=== PATIENT | male | born 1960 | race Caucasian/White ===

== ENCOUNTER 2021-02-01 07:59 | Outpatient (RCR) | payer OTHER, SELFPAY ==
--- NOTE | 2021-02-01 08:56 | PTOPEVAL ---
Thank you for referring Luisito Wilson to [facility].? The patient is scheduled to be seen for therapy? ____x/week for ___ weeks. Please review, sign, date and return this plan of care XIMENA. I agree with and certify that the following plan of care is medically necessary. Referring Physician Date Admitting Provider: Attending Provider: Edwin Sanchez MD Referring Provider: *PT Outpatient Evaluation Start: 02/01/21 07:57 Freq: Status: Active Protocol: Document 02/01/21 07:58 ACR (Rec: 02/01/21 08:55 ACR [id number]) Therapy Assessment Status Assessment Status Assessment Status Evaluation Evaluation Information Problem Diagnosis bilateral lower extremity weakness Subjective Information Patient states he went to the Query Text:As Reported By Patient/ MD for his normal check up and Family his doctor said that he had weak legs. He did not want have to any imaging and decided to come to PT. Patient states he has not had any falls. He states he has had numbness in the feet for about 10 years and he believes that is from his back, but is also a type 2 diabetic and he is having trouble controlling it. He states he has had back pain for 10 years because of a bulging discs. Stairs are slightly difficult because of the numbness in the feet. He states he walks 5 times a week and keeps up with his hobbies and nothing is hindering him from performing these at this time. Prior Level of Function Activity Level (Last 3 Months) Occupation retired Hand Dominance Right Activity of Daily Living Ability Independent Indoor/Home Mobility Independent Community Mobility Independent Stairs Ability Independent Functional Cognition (Planning, Shopping Independent , Taking Medications) Cooking Yes Cleaning Yes Laundry Yes Shopping Yes Driving Yes Pain Assessment Timing of Pain Assessment Timing of Pain Assessment Assessment Self Report Self Report Pain Level 0 Pain Score Pain Score
--- NOTE | 2021-02-22 07:52 | PCPTNOTE ---
Patient is a 60 year old male that participated in the therapy evaluation for BLE weakness. The patient demonstrated limited deficits and was given a handout to perform at home. The patient is to be discharged at this time. Thank you, Simin Rodriguez DPT
== END 2021-02-01 09:19 | disposition home or self-care (01) ==
LOC: CHSPT 07:59
PROVIDERS: PCP Internal Medicine; Visit Provider Internal Medicine
DX: R53.1 Weakness (principal); R26.9 Unspecified abnormalities of gait and mobility; M48.07 Spinal stenosis, lumbosacral region; M54.10 Radiculopathy, site unspecified
CPT/HCPCS: 97161

== ENCOUNTER 2021-05-14 01:22 | Day surgery (SDC) | payer OTHER, SELFPAY ==
[2021-05-02 16:01] VITALS: BMI 27.8
--- NOTE | 2021-05-14 07:48 | WPDANESEPPF ---
Anes - Initial Pre Proc Eval Procedure: Operation Date: 05/14/21 10:30 Proposed Procedures p Screening Colonoscopy - Ronald Pradhan MD Date/Time: 05/14/21 07:48 Surgeon: Ronald Pradhan MD Pre Op Diagnosis: family hx of colon ca, hx of colon polyps Patient Data Age: 60 Gender: M Height: 1.91 m Weight: 101 kg Allergies Allergy/AdvReac Type Severity Reaction Status Date / Time No Known Allergies Allergy Unverified 05/14/21 10:03 Home Medications Medication Instructions Recorded Confirmed Type aspirin [Adult Low Dose Aspirin] 81 mg PO HS 05/02/21 05/14/21 History lovastatin 40 mg PO HS 05/02/21 05/14/21 History metformin 1,000 mg PO HS 05/02/21 05/14/21 History multivitamin [Men's Multi-Vitamin] 1 tablet PO HS 05/02/21 05/14/21 History niacin [Niaspan Extended-Release] 1,000 mg PO HS 05/02/21 05/14/21 History Patient hx anesthesia problems: none Family hx anesthesia problems: none PMFSH Past Medical History Medical History Diabetes type 2, controlled Hyperlipidemia Family History Family History Mother Family history of elevated blood lipids Family history of malignant neoplasm of uterus Family history of dementia Sibling Family history of elevated blood lipids Father Family history of dementia Family history of type 2 diabetes mellitus Family history of congestive heart failure Other Carcinoma of colon Social History Social History Smoking status: Never smoker Alcohol intake: current Substance use: never Substance use type: does not use Living arrangements: with family Spiritual care concerns: No Anes - Eval Final PreProcedure Day of Procedure 05/14/21 07:48 Patient weight: overweight Heart: regular rate and rhythm Lungs: clear to auscultation and normal air movement Airway: Mallampati scale class II Neurological: alert and oriented Last oral intake: >/= 8 hours ASA classification: III Emergent: no Anesthetic plan: proceed Anesthesia type and monitoring: general GIVS and standard monitoring Informed Consent: The patient's anesthetic plan and its attendant risks and benefits were discussed with the patient/family/POA. Questions were solicited and answers provided to the satisfaction of the patient/family/POA.
--- NOTE | 2021-05-14 09:53 | P.CONGI_ITS ---
Assessment and Plan Assessment and plan (1) History of colon polyps: Code(s): Z86.010 - Personal history of colonic polyps Status: Acute Assessment and Plan: Patient has prior history of colon polyps as well as a family history of colon polyps and cancer. Plan is for surveillance colonoscopy in every 3-5 years. (2) Family history of malignant neoplasm of colon in first degree relative diagnosed when younger than 60 years of age: Code(s): Z80.0 - Family history of malignant neoplasm of digestive organs Status: Acute Assessment and Plan: Patient's brother has had colon cancer at a young age. His father also has had colon polyps and patient himself has had colon polyps. Plan to anticipate follow-up colonoscopy in 3 years. Further recommendations will be given after colonoscopy performed today. GI Consult Note Consult date/time: 05/14/21 09:53 HPI: Luisito Wilson is a 60 year old male presents for surveillance colo noscopy. Patient has a history of a previous colonoscopy in 2018 that revealed colon polyps. Family history is significant that his brother had colon cancer his father had colon polyps as well. Patient reports that his current weight appetite bowel movements are normal. He denies abdominal pain. He has had no bleeding. Review of Systems Review of Systems: All systems reviewed & are unremarkable except as noted in HPI and below PMFSH Past Medical History Medical History (Updated 05/14/21 @ 09:55 by Ronald Pradhan MD) Diabetes type 2, controlled Hyperlipidemia Family History Family History (Updated 02/15/15 @ 11:46 by DOCTOR UNKNOWN) Mother Family history of elevated blood lipids Family history of malignant neoplasm of uterus Family history of dementia Sibling Family history of elevated blood lipids Father Family history of dementia Family history of type 2 diabetes mellitus Family history of congestive heart failure Other Carcinoma of colon Social History Social History Smoking status: Never smoker Alcohol intake: current Substance use: never Substance use type: does not use Living arrangements: with family Spiritual care concerns: No Meds Home Medications and Allergies Home Medications Medication Instructions Recorded Confirmed Type aspirin [Adult Low Dose Aspirin] 81 mg PO HS 05/02/21 05/02/21 History lovastatin 40 mg PO HS 05/02/21 05/02/21 History metformin 1,000 mg PO HS 05/02/21 05/02/21 History multivitamin [Men's Multi-Vitamin] 1 tablet PO HS 05/02/21 05/02/21 History niacin [Niaspan Extended-Release] 1,000 mg PO HS 05/02/21 05/02/21 History Allergies Allergy/AdvReac Type Severity Reaction Status Date / Time No Known Allergies Allergy Unverified 05/02/21 16:01 Exam Narrative: Physical exam reveals patient to be alert. Vital signs stable. HEENT exam is unremarkable. Patient is anicteric. Lungs are clear to auscultation and percussion. Heart is without murmur or extra sounds. Abdominal exam bowel sounds are present soft nontender with no organomegaly. Digital external rectal exam is normal.
[2021-05-14 10:04] VITALS: BP 137/80; PULSE 90; RESP 16; TEMP 36.4; O2SAT 99
[2021-05-14] MEDS: LACTATED RINGERS 1,000 ML 150 ML IV CONT (10:15)
[2021-05-14 10:19] LABS: Glucose Point of Care 151 mg/dl (65-105)
--- NOTE | 2021-05-14 10:31 | WPDANESEPP ---
Anes - Eval Pre Procedure Procedure: Operation Date: 05/14/21 10:30 Proposed Procedures p Screening Colonoscopy - Ronald Pradhan MD Date/Time: 05/14/21 10:31 Pre Op Diagnosis: family hx of colon ca, hx of colon polyps Patient Data Age: 60 Gender: M Height: 1.91 m Weight: 97.7 kg Last Vital Signs Temp 36.4 C 05/14/21 10:04 Pulse 90 05/14/21 10:04 Resp 16 05/14/21 10:04 BP 137/80 05/14/21 10:04 Pulse Ox 99 05/14/21 10:04 Allergies Allergy/AdvReac Type Severity Reaction Status Date / Time No Known Allergies Allergy Unverified 05/14/21 10:03 Home Medications Medication Instructions Recorded Confirmed Type aspirin [Adult Low Dose Aspirin] 81 mg PO HS 05/02/21 05/14/21 History lovastatin 40 mg PO HS 05/02/21 05/14/21 History metformin 1,000 mg PO HS 05/02/21 05/14/21 History multivitamin [Men's Multi-Vitamin] 1 tablet PO HS 05/02/21 05/14/21 History niacin [Niaspan Extended-Release] 1,000 mg PO HS 05/02/21 05/14/21 History Laboratory Tests 05/14/21 10:14 POC Capillary Glucose 151 mg/dl H mg/dl (65-105) Patient hx anesthesia problems: none Family hx anesthesia problems: none PMFSH Past Medical History Medical History Diabetes type 2, controlled Hyperlipidemia Family History Family History Mother Family history of elevated blood lipids Family history of malignant neoplasm of uterus Family history of dementia Sibling Family history of elevated blood lipids Father Family history of dementia Family history of type 2 diabetes mellitus Family history of congestive heart failure Other Carcinoma of colon Social History Social History Smoking status: Never smoker Alcohol intake: current Substance use: never Substance use type: does not use Living arrangements: with family Spiritual care concerns: No Exam Day of Procedure 05/14/21 10:31 Patient weight: overweight Heart: regular rate and rhythm Lungs: normal air movement Airway: Mallampati scale class II Neurological: alert and oriented
[2021-05-14 10:58] VITALS: BP 93/66; PULSE 92; RESP 18; O2SAT 100
[2021-05-14 11:08] VITALS: BP 128/84; PULSE 81; RESP 24; O2SAT 99
[2021-05-14 11:18] VITALS: BP 126/83; PULSE 81; RESP 20; O2SAT 99
== END 2021-05-14 11:25 | disposition home or self-care (01) ==
PROVIDERS: PCP Internal Medicine; Visit Provider Internal Medicine Gastroenterology
PROC: 0DJD8ZZ Inspection of Lower Intestinal Tract, Via Natural or Artificial Opening Endoscopic (ICD-10-PCS; CPT 45378; principal; 2021-05-14 10:30)
DX: Z12.11 Encounter for screening for malignant neoplasm of colon (principal); Z83.71 Family history of colonic polyps; Z80.0 Family history of malignant neoplasm of digestive organs; K57.30 Diverticulosis of large intestine without perforation or abscess without bleeding; K64.8 Other hemorrhoids; E11.9 Type 2 diabetes mellitus without complications; E78.5 Hyperlipidemia, unspecified; Z79.82 Long term (current) use of aspirin; Z79.84 Long term (current) use of oral hypoglycemic drugs
CPT/HCPCS: 45378; 82948; J2704; J7120

== ENCOUNTER 2021-07-14 22:20 | Observation (INO) | payer OTHER, SELFPAY ==
--- NOTE | ~2021-07-14 | CT_ITS ---
EXAMINATION: CT abdomen pelvis w con EXAM DATE: 07/15/2021 00:32 INDICATION: Mid abdominal pain. TECHNIQUE: Spiral CT of the abdomen and pelvis was performed following intravenous injection of 100 m L Omnipaque 350. Axial, coronal and sagittal images of the abdomen and pelvis were reviewed. The do se-length product (DLP) for this examination was 889.75 mGy-cm. The exposure was tailored according to patient size (auto mA exposure control), and iterative reconstruction (ASIR) was used as additiona l dose reduction technique. There is no prior study for comparison. FINDINGS: The liver, spleen, adrenal glands and pancreas are unremarkable. Gallbladder is unremarkab le. No biliary obstruction. Portal and splenic veins are patent. Kidneys enhance symmetrically. T here is no hydronephrosis. There is 1.4 cm left renal cyst. Mild prostatomegaly. The bladder is unr emarkable. There is no retroperitoneal or pelvic lymphadenopathy. There is mild scattered arterios clerotic disease. The appendix is normal. The stomach and small bowel are unremarkable. There is expected amount of c olonic stool. No free intraperitoneal gas. The heart is normal in size. There are no pericardial or pleural effusions. The lung bases are unremarkable. There are no osteoblastic or osteolytic les ions identified. IMPRESSION: 1. No acute intra-abdominal findings. Reviewed, dictated and finalized at location A.
--- NOTE | 2021-07-14 23:22 | ECG_ITS ---
Measurements Intervals Luck Rate: 60 P: 33 ND: 148 QRS: -19 QRSD: 101 T: 48 QT: 416 QTc: 418 Interpretive Statements SINUS RHYTHM INCOMPLETE RIGHT BUNDLE BRANCH BLOCK BASELINE ARTIFACT- I, II, III, AVR, AVL, AVF BORDERLINE ECG Electronically Signed On 07-16-2021 7:50:31 CDT by Janak Mariscal D.O.
[2021-07-14 23:30] VITALS: BP 171/82; PULSE 85; RESP 20; TEMP 36.6; O2SAT 95
[2021-07-14 23:41] LABS: Basophils Absolute Auto 0.02 K/mm3 (0.00-0.10); Basophils Percent Auto 0.3 % (0.0-1.0); Eosinophils Percent Auto 1.3 % (1.0-6.0); Hematocrit 47.4 % (40.0-54.0); Hemoglobin 16.5 g/dL (14.0-18.0); Immature Granulocyte Absolute 0.03 K/mm3 (0.00-0.00); Immature Granulocyte Percent A 0.4 % (0.0-0.0); Lymphocytes Absolute Auto 0.76 K/mm3 (1.10-4.50); Lymphocytes Percent Auto 9.7 % (18.0-42.0); Mean Corpuscular HGB Conc 34.8 g/dL (32.0-36.0); Mean Corpuscular Hemoglobin 30.9 pg (27.0-31.0); Mean Corpuscular Volume 88.8 fL (78.0-102.0); Mean Platelet Volume 9.6 fl (8.7-11.0); Monocytes Absolute Auto 0.58 K/mm3 (0.10-0.90); Monocytes Percent Auto 7.4 % (2.0-11.0); Neutrophils Absolute Auto 6.3 K/mm3 (1.7-7.2); Neutrophils Percent Auto 80.9 % (50.0-70.0); Platelet Count Result 216 K/mm3 (150-420); Red Blood Count 5.34 M/mm3 (4.70-6.10); White Blood Count 7.8 K/mm3 (4.8-10.8)
[2021-07-14] MEDS: ONDANSETRON INJ 4 MG/2 ML VIAL IV PUSH (23:55)
[2021-07-14 23:58] LABS: Alanine Aminotransferase 35 U/L (16-63); Albumin Level 4.5 g/dL (3.4-5.0); Alkaline Phosphatase 80 U/L (46-116); Anion Gap 11 mmol/L (8-16); Aspartate Amino Transferase 20 U/L (15-37); Bilirubin,Total 0.6 mg/dL (0.00-1.00); Blood Urea Nitrogen 14 mg/dL (7-18); Calcium 9.2 mg/dL (8.5-10.1); Carbon Dioxide 28 mmol/L (21-32); Chloride 98 mmol/L (98-108); Estimated Glomerular Filt Rate > 60; Glucose 243 mg/dL (70-99); Lactic Acid Reflex 1.5 mmol/L (0.4-2.0); Lipase 115 U/L (73-393); Osmolality Calculated 292 mOsm/kg (285-295); Potassium 4.2 mmol/L (3.5-5.1); Sodium 137 mmol/L (136-145); Total Protein 7.9 g/dL (6.4-8.2); Troponin I 27.6 ng/L (0.00-60.4)
[2021-07-14] MEDS: MORPHINE SULFATE (*CRX) 4 MG/ML INJ IV PUSH (23:58)
[2021-07-15] MEDS: SODIUM CHLORIDE 0.9% IV 1,000 ML 999 ML IV CONT (00:01)
--- NOTE | 2021-07-15 01:21 | ED.ABDPAIN ---
HPI - Abdominal Pain General Chief Complaint: Abdominal Pain Stated Complaint: clamy,stomach cramps Source: patient and family Mode of arrival: ambulatory History of Present Illness HPI narrative: this is a 61-year-old gentleman that presents with abdominal pain with some nausea he rates his pain about 6 out 10 localizing to the left lower quadrant with no chest pain no shortness of breath no diarrhea constipation does have some nausea with no vomiting no dysuria no flank pain no fever chills. Patient does have a history of hyperlipidemia and diabetes. patient also felt diaphoretic, and received his COVID booster yesterday. MD elicited complaint: abdominal pain Pertinent past history: none Onset (ago): hour(s) Pain Consistency: constant Location: LLQ Severity: moderate Pain scale (0-10): 6 Quality: cramping and aching Radiation: none Related Data Home Medications Medication Instructions Recorded Confirmed aspirin [Adult Low Dose Aspirin] 81 mg PO HS 05/02/21 07/15/21 lovastatin 20 mg PO HS 05/02/21 07/15/21 metformin 1,000 mg PO HS 05/02/21 07/15/21 multivitamin [Men's Multi-Vitamin] 1 tablet PO HS 05/02/21 07/15/21 niacin [Niaspan Extended-Release] 1,000 mg PO HS 05/02/21 07/15/21 Allergies Allergy/AdvReac Type Severity Reaction Status Date / Time No Known Allergies Allergy Unverified 05/14/21 10:03 Review of Systems Review of Systems: All systems reviewed & are unremarkable except as noted in HPI and below PMFSH Past Medical History Medical History Diabetes type 2, controlled Hyperlipidemia Family History Family History Mother Family history of elevated blood lipids Family history of malignant neoplasm of uterus Family history of dementia Sibling Family history of elevated blood lipids Father Family history of dementia Family history of type 2 diabetes mellitus Family history of congestive heart failure Other Carcinoma of colon Social History Social History Smoking status: Never smoker Alcohol intake: current Substance use: never Substance use type: does not use Spiritual care concerns: No Exam Const: General: no acute distress Orientation/consciousness: patient oriented x3 HENMT: Head: normal to inspection Eyes: Conjunctivae: conjunctivae normal Pupils: Equal, round and reactive pupils present EOM: EOMs intact bilaterally Direct Ophthalmoscopy: no photophobia Neck: Neck: normal visual inspection Chest: Chest palpation & inspection: normal inspection of the chest Resp: Effort & Inspection: normal respiratory effort Auscultation: clear to auscultation bilaterally Cardio: Rate: regular rate Rhythm: regular rhythm GI: GI Palp: Yes Soft to palpation and Yes Tenderness to palpation present (GI) ( Left lower quadrant) Percussion: Yes normal to percussion Urinary Catheter: Urinary Catheter: patent and draining and urine clear Back/Spine/Pelvis: Back: no CVA tenderness Skin: General skin exam: normal color Rashes: no rashes Extrem: General: normal to inspection Psych: Mental Status: mental status grossly normal Course Course Emergency Course: Patient received morphine and IV fluids morphine did help improve his abdominal discomfort, reviewed CT scan and lab work with patient and will be giving him a IV dose of Flagyl and Cipro and will admit to the hospital. admission to saw on hospital Disposition Condition guarded Diagnosis abdominal pain/ Inderal colitis Vital Signs Vital signs: Vital Signs Temperature 36.6 C 07/14/21 23:30 Pulse Rate 85 07/14/21 23:30 Respiratory Rate 20 07/14/21 23:30 Blood Pressure 171/82 H 07/14/21 23:30 Pulse Oximetry 95 07/14/21 23:30 Temperature 36.6 C 07/14/21 23:30 Pulse Rate 85 07/14/21 23:30 Respiratory Rate 20 07/14/21 2
[2021-07-15] MEDS: CIPROFLOXACIN 400 MG/D5W 200ML 200 ML 200 MG IVPB (01:23)
--- NOTE | 2021-07-15 01:26 | PC.NURSE ---
ERP discussed POC and xray results. Pt to be 23 hr obs admit. Call placed to floor and spoke to Pau, pt will go to 207[facility].
[2021-07-15 01:41] VITALS: BP 156/71; PULSE 84; RESP 20; TEMP 36.2; O2SAT 99
[2021-07-15 01:46] LABS: Appearance Urine Clear (Clear); Bilirubin Urine Negative (Negative); Color Urine Light Yellow (Yellow); Glucose Urine UA 3+ (Negative); Ketones Urine 3+ (Negative); Leukocyte Esterase Ur Negative (Negative); Nitrate Urine Negative (Negative); Protein Urine Negative (Negative); Urobilinogen Urine 0.2 mg/dL (0.2-1.0); pH Urine 5.5 (5.0-8.0)
[2021-07-15 02:01] LABS: Add Urine Microscopic? YES; Blood Urine Trace-Intact (Negative)
[2021-07-15 02:02] LABS: RBC Urine 0-2 /hpf (0-2)
[2021-07-15 02:15] VITALS: BMI 27.5
[2021-07-15 02:29] VITALS: BMI 27.5
--- NOTE | 2021-07-15 02:30 | PC.NURSE ---
PATIENT ADMITTED TO ROOM 207 FROM THE ER FOR OBSERVATION, IS ALERT AND ORIETNED TIMES 3, REFUSED CONRADO HOSE, ORIENTED TO ROOM AND CALL LIGHT.
[2021-07-15] MEDS: metroNIDAZOLE 500 MG/ISO 100ML 500 MG/100 ML BAG 100 MG IVPB (02:40)
[2021-07-15] MEDS: SODIUM CHLORIDE 0.9% IV 1,000 ML 100 ML IV CONT (02:42)
[2021-07-15 03:59] VITALS: BP 155/74; PULSE 82; RESP 20; TEMP 36.6; O2SAT 98
[2021-07-15 07:09] LABS: Basophils Absolute Auto 0.02 K/mm3 (0.00-0.10); Basophils Percent Auto 0.3 % (0.0-1.0); Eosinophils Absolute Auto 0.05 K/mm3 (0.02-0.50); Eosinophils Percent Auto 0.8 % (1.0-6.0); Hematocrit 45.1 % (40.0-54.0); Hemoglobin 15.8 g/dL (14.0-18.0); Immature Granulocyte Absolute 0.01 K/mm3 (0.00-0.00); Immature Granulocyte Percent A 0.2 % (0.0-0.0); Lymphocytes Absolute Auto 0.88 K/mm3 (1.10-4.50); Lymphocytes Percent Auto 13.6 % (18.0-42.0); Mean Corpuscular Volume 88.6 fL (78.0-102.0); Mean Platelet Volume 9.7 fl (8.7-11.0); Monocytes Absolute Auto 0.81 K/mm3 (0.10-0.90); Monocytes Percent Auto 12.5 % (2.0-11.0); Neutrophils Absolute Auto 4.7 K/mm3 (1.7-7.2); Neutrophils Percent Auto 72.6 % (50.0-70.0); Platelet Count Result 214 K/mm3 (150-420); Red Blood Count 5.09 M/mm3 (4.70-6.10); Red Cell Distribution Width 11.9 % (11.6-14.4); White Blood Count 6.5 K/mm3 (4.8-10.8)
[2021-07-15 07:36] LABS: Alanine Aminotransferase 30 U/L (16-63); Albumin Level 3.6 g/dL (3.4-5.0); Alkaline Phosphatase 68 U/L (46-116); Anion Gap 7 mmol/L (8-16); Aspartate Amino Transferase 15 U/L (15-37); Bilirubin,Total 0.4 mg/dL (0.00-1.00); Blood Urea Nitrogen 8 mg/dL (7-18); Calcium 8.8 mg/dL (8.5-10.1); Carbon Dioxide 29 mmol/L (21-32); Chloride 103 mmol/L (98-108); Estimated CRCL calculation 85 ml/min; Estimated Glomerular Filt Rate > 60; Glucose 196 mg/dL (70-99); Osmolality Calculated 291 mOsm/kg (285-295); Potassium 4.7 mmol/L (3.5-5.1); Sodium 139 mmol/L (136-145); Total Protein 6.6 g/dL (6.4-8.2)
[2021-07-15 08:00] VITALS: BP 137/71; PULSE 84; RESP 16; TEMP 37.1; O2SAT 96
[2021-07-15 08:10] LABS: Glucose Point of Care 176 mg/dl (65-105)
[2021-07-15 11:55] LABS: Glucose Point of Care 235 mg/dl (65-105)
--- NOTE | 2021-07-15 11:55 | PM.SD2 ---
Same Day Admit/Disch: HPI History of Present Illness Chief complaint: clamy,stomach cramps <PILY Muniz - Last Filed: 07/15/21 15:24> Narrative: Luisito Wilson is a 61 year old male admitted under Observation for Abdominal Pain. Pt states that he has had this pain off and on for about a year with the abdominal pain only lasting for about 15 minutes. Last night he was eating popcorn and after a few mouth full of popcorn his stomach started to hurt and he needed to stop eating. The pain was intense and lasted for about 2 hours at which time his convinced him to go to the ER. He states he has a history of Diverticulosis and Colonoscopy in April of 2021 that was normal though he did have some polyps in the past that were pre CA and his brother had colon CA. Pt denies nausea, vomiting, EtOH abuse, bloody or tarry stools. Pt has no other complaints. <PILY Muniz - Last Filed: 07/15/21 15:24> [facility] Past Medical History Medical History: Medical History (Updated 07/15/21 @ 15:03 by PILY Muniz) Diabetes type 2, controlled Hyperlipidemia <PILY Muniz - Last Filed: 07/15/21 15:24> Family History Family History: Family History Mother Family history of elevated blood lipids Family history of malignant neoplasm of uterus Family history of dementia Sibling Family history of elevated blood lipids Father Family history of dementia Family history of type 2 diabetes mellitus Family history of congestive heart failure Other Carcinoma of colon <PILY Muniz - Last Filed: 07/15/21 15:24> Social History Social History: Social History Smoking status: Never smoker Second hand tobacco smoke exposure: No Alcohol intake: former Substance use: never Substance use type: does not use Spiritual care concerns: No <PILY Muniz - Last Filed: 07/15/21 15:24> Same Day Admit/Disch: Med Pre-admit Medications Home Medications: Home Medications Medication Instructions Recorded Confirmed Type aspirin 81 mg PO HS 05/02/21 07/15/21 History lovastatin 20 mg PO HS 05/02/21 07/15/21 History metformin 1,000 mg PO HS 05/02/21 07/15/21 History multivitamin 1 tablet PO HS 05/02/21 07/15/21 History niacin [Niaspan Extended-Release] 1,000 mg PO HS 05/02/21 07/15/21 History blood-glucose meter [Accu-Chek #1 ea 07/15/21 Rx Guide Glucose Meter] <Elton CobbPILY gonzalez - Last Filed: 07/15/21 15:24> Exam Const: General: cooperative, healthy appearing, comfortable, no acute distress, alert, awake and Physically active <Elton Rosa LA Winn - Last Filed: 07/15/21 15:24> Nutritional Appearance: average body habitus <Elton Rosa LA Winn - Last Filed: 07/15/21 15:24> Resp: Effort & Inspection: normal respiratory effort <Elton CobbLA gonzalez - Last Filed: 07/15/21 15:24> Auscultation: clear to auscultation bilaterally <Elton CobbLA gonzalez - Last Filed: 07/15/21 15:24> Cardio: Jugular venous distension: no JVD <Elton CobbLA gonzalez - Last Filed: 07/15/21 15:24> Rate: regular rate <Elton Rosa LA Winn - Last Filed: 07/15/21 15:24> Heart sounds: S1 normal heart sound present and S2 normal heart sound present <Elton Rosa LA Winn Last Filed: 07/15/21 15:24> GI: GI Palp: Yes Soft to palpation, No Tenderness to palpation present (GI), No Guarding due to palpation present (GI) and Yes No hepatosplenomegaly present <Elton CobbPILY gonzalez - Last Filed: 07/15/21 15:24> Auscultation: Hypoactive bowel sounds present <Elton Rosa PILY Winn - Last Filed: 07/15/21 15:24> Skin: General skin exam: normal color and dry skin <PILY Muniz - Last Filed: 07/15/21 15:24> Neuro: General: oriented to person, oriented to place and oriented to time <PILY Muniz - Last Filed: 07/15/21 15:24> Cranial
[2021-07-15 12:00] VITALS: BP 128/76; PULSE 80; RESP 18; TEMP 36.3; O2SAT 96
--- NOTE | 2021-07-15 15:52 | PC.NURSE ---
Discharge instructions reviewed with patient and spouse. Patient verbalizes understanding. Patient ambulated from floor independently.
--- NOTE | 2021-07-17 15:29 | PC.NURSE ---
Pt states he received and understood his discharge instructions. Pt has no other comments.
== END 2021-07-15 15:50 | disposition home or self-care (01) ==
LOC: CHSED 07-15 01:24 → CHS2ND 07-15 15:23
PROVIDERS: Admitting Provider Emergency Medicine; Emergency Provider Emergency Medicine; PCP Internal Medicine; Visit Provider Emergency Medicine
DX: R10.32 Left lower quadrant pain (principal); E78.5 Hyperlipidemia, unspecified; E11.9 Type 2 diabetes mellitus without complications; K57.30 Diverticulosis of large intestine without perforation or abscess without bleeding; Z86.010 Personal history of colon polyps; Z80.0 Family history of malignant neoplasm of digestive organs
CPT/HCPCS: 36415; 74177; 80053; 81001; 82948; 83605; 83690; 84484; 85025; 93005; 96361; 96365; 96367; 96374; 96375; 99285; G0378; J0744; J1815; J2270; J2405; J7030; Q9967

== ENCOUNTER 2023-04-04 00:30 | Day surgery (SDC) | payer OTHER, SELFPAY ==
[2023-03-27 13:47] VITALS: BMI 22.9
--- NOTE | 2023-04-04 08:17 | P.PNAN_ITS ---
Anes - Initial Pre Proc Eval Procedure: Operation Date: 04/04/23 12:00 Proposed Procedures p Esophagogastroduodenoscopy - Ronald Pradhan MD Date/Time: 04/04/23 08:17 Surgeon: Ronald Pradhan MD Pre Op Diagnosis: abdominal pain Patient Data Age: 62 Gender: M Height: 1.91 m Weight: 83.2 kg Allergies Allergy/AdvReac Type Severity Reaction Status Date / Time metformin Allergy Intermediate Abdominal Verified 04/04/23 10:15 Pain Home Medications Medication Instructions Recorded Confirmed Type aspirin 81 mg tablet 81 mg PO HS 05/02/21 03/27/23 History lovastatin 20 mg tablet 40 mg PO HS 05/02/21 03/27/23 History multivitamin 1 tablet PO HS 05/02/21 03/27/23 History niacin 1,000 mg tablet,extended 1,000 mg PO HS 05/02/21 03/27/23 History release 24 hr (Niaspan) blood-glucose meter (Accu-Chek #1 ea 07/15/21 02/14/23 Rx Guide Glucose Meter) nortriptyline 10 mg capsule 10 mg PO DAILY 02/14/23 03/27/23 History Patient hx anesthesia problems: none Family hx anesthesia problems: none Results Review: All pre-operative results and documents have been reviewed as part of the pre- operative evaluation. [facility] Past Medical History Medical History Diabetes type 2, controlled Hyperlipidemia Family History Family History Mother Family history of elevated blood lipids Family history of malignant neoplasm of uterus Family history of dementia Sibling Family history of elevated blood lipids Father Family history of dementia Family history of type 2 diabetes mellitus Family history of congestive heart failure Other Carcinoma of colon Social History Social History Smoking status: Never smoker Second hand tobacco smoke exposure: No Alcohol intake: former Substance use: never Substance use type: does not use Living arrangements: with family Spiritual care concerns: No Anes - Eval Final PreProcedure Day of Procedure 04/04/23 08:17 Patient weight: normal Heart: regular rate and rhythm Lungs: clear to auscultation and normal air movement Airway: Mallampati scale class II Neurological: alert and oriented Last oral intake: >/= 8 hours ASA classification: III Emergent: no Anesthetic plan: proceed Anesthesia type and monitoring: general GIVS and standard monitoring Results Review: All pre-operative results and documents have been reviewed as part of the pre- operative evaluation. Informed Consent: The patient's anesthetic plan and its attendant risks and benefits were discussed with the patient/family/POA. Questions were solicited and answers provided to the satisfaction of the patient/family/POA.
--- NOTE | 2023-04-04 10:24 | PM.HPGS ---
History of Present Illness History of Present Illness Consent: Risks, benefits, and alternatives have been discussed and questions answered. Patient agrees to proceed with procedure. Chief complaint: abdominal pain Narrative: Luisito Green Wilson is a 62 year old male Complains of recurring abdominal pain. Patient states for several hours after eating certain foods he will get abdominal cramps that bent him over he cannot find relief. Typically these cramps will last for several hours and then spontaneously relieved them cells. Occasionally he will have emesis but frequently the emesis has minimal to no food in it after eating. Patient states bowel habits are normal. He denies heartburn. Recent CT scan was unremarkable. No improvement with trial of acid reducing agents. Patient's family history is noncontributory. Colonoscopy several years ago revealed only diverticulosis but no inflammation. A benign polyp was removed. Patient presents today for EGD to exclude upper GI etiology to discomfort. Review of Systems Review of Systems: Review of systems noncontributory. [facility] Past Medical History Medical History Diabetes type 2, controlled Hyperlipidemia Family History Family History Mother Family history of elevated blood lipids Family history of malignant neoplasm of uterus Family history of dementia Sibling Family history of elevated blood lipids Father Family history of dementia Family history of type 2 diabetes mellitus Family history of congestive heart failure Other Carcinoma of colon Social History Social History Smoking status: Never smoker Second hand tobacco smoke exposure: No Alcohol intake: former Substance use: never Substance use type: does not use Living arrangements: with family Spiritual care concerns: No Meds Home Medications and Allergies Home Medications Medication Instructions Recorded Confirmed Type aspirin 81 mg tablet 81 mg PO HS 05/02/21 03/27/23 History lovastatin 20 mg tablet 40 mg PO HS 05/02/21 03/27/23 History multivitamin 1 tablet PO HS 05/02/21 03/27/23 History niacin 1,000 mg tablet,extended 1,000 mg PO HS 05/02/21 03/27/23 History release 24 hr (Niaspan) blood-glucose meter (Accu-Chek #1 ea 07/15/21 02/14/23 Rx Guide Glucose Meter) nortriptyline 10 mg capsule 10 mg PO DAILY 02/14/23 03/27/23 History Allergies Allergy/AdvReac Type Severity Reaction Status Date / Time metformin Allergy Intermediate Abdominal Verified 04/04/23 10:15 Pain Exam Narrative: Physical exam today reveals patient be alert comfortable at rest. Vital signs are stable. HEENT exam is unremarkable. Patient is anicteric. Lungs are clear to auscultation and percussion. Heart is without murmur or extra sounds. Abdomen bowel sounds are present soft nontender with no organomegaly. Assessment and Plan Assessment and plan (1) Abdominal pain: Code(s): R10.9 - Unspecified abdominal pain Status: Acute Assessment and Plan: Abdominal pain of uncertain etiology. I am somewhat suspicious this may represent a small bowel narrowing. Plan for EGD to assess more thoroughly initially. If this is negative then small-bowel follow-through and possible patency capsule exam may be beneficial. Further recommendations may be given after endoscopy. (2) History of colon polyps: Code(s): Z86.010 - Personal history of colonic polyps Status: Acute Assessment and Plan: Patient found to have benign colon polyp in 2020. Plan for surveillance colonoscopy at 5 year intervals. (3) Family history of malignant neoplasm of colon in first degree relative diagnosed when younger than 60 years of age: Code(s): Z80.0 - Family history of malignant neoplasm of digestive or
[2023-04-04 10:28] VITALS: BP 122/75; PULSE 72; RESP 20; TEMP 36.4; O2SAT 100
[2023-04-04] MEDS: LACTATED RINGERS 1,000 ML 150 ML IV CONT (10:43)
[2023-04-04 10:47] LABS: Glucose Point of Care 148 mg/dl (65-105)
[2023-04-04] MEDS: SIMETHICONE ORAL SUSPENSION 20 MG/0.3 ML 30 ML BOTTLE 0.6 ML IRRIGATION (11:09)
[2023-04-04 11:12] VITALS: BP 101/65; PULSE 66; RESP 30; O2SAT 100
[2023-04-04 11:22] VITALS: BP 103/64; PULSE 66; RESP 20; O2SAT 100
[2023-04-04 11:32] VITALS: BP 104/69; PULSE 66; RESP 15; O2SAT 100
== END 2023-04-04 11:44 | disposition home or self-care (01) ==
PROVIDERS: PCP Internal Medicine; Visit Provider Internal Medicine Gastroenterology
PROC: 0DJ08ZZ Inspection of Upper Intestinal Tract, Via Natural or Artificial Opening Endoscopic (ICD-10-PCS; CPT 43235; principal; 2023-04-04 12:00)
DX: R10.84 Generalized abdominal pain (principal); E78.5 Hyperlipidemia, unspecified; E11.9 Type 2 diabetes mellitus without complications; Z79.82 Long term (current) use of aspirin; Z80.0 Family history of malignant neoplasm of digestive organs
CPT/HCPCS: 43239; 82948; 87081; J2704; J7120

== ENCOUNTER 2023-04-15 09:05 | Outpatient (CLI) | payer OTHER, SELFPAY ==
--- NOTE | ~2023-04-15 | XR_ITS ---
EXAMINATION: XR small bowel follow through DATE: 04/15/2023 10:15 INDICATION: Upper abdominal pain. Constipation. TECHNIQUE: Oral contrast was administered, and a time course of radiographs of the abdomen was obtain ed. Fluoroscopy of the small bowel was performed. Fluoroscopy exposure time was 0.1 minutes. The tota l number of images was 10. COMPARISON: CT abdomen and pelvis 07/15/2021 FINDINGS: There are no dilated loops of bowel. There is no abnormal mass or stricture. The terminal ileum is no rmal. Transit time from the stomach to proximal colon was approximately 30 minutes. IMPRESSION: 1. Normal small bowel series. Reviewed, dictated and finalized at location A.
== END 2023-04-15 09:06 | disposition home or self-care (01) ==
PROVIDERS: PCP Internal Medicine; Visit Provider Internal Medicine Gastroenterology
DX: R10.10 Upper abdominal pain, unspecified (principal); K59.00 Constipation, unspecified
CPT/HCPCS: 74250

== ENCOUNTER 2024-11-29 07:09 | Outpatient (CLI) | payer MEDICARE, SELFPAY ==
--- OUTSIDE RECORDS SUMMARY | 2024-11-29 07:16 | XMS_ITS | Patient Health Summary ---
Author Organization [facility] Address [address] [place] [address] Care Team Providers Care Animal Laboratory Technician Name Role Phone Edwin Sanchez MD Primary Care Provider [phone] Note from [facility],non-owned Affiliates and Associated Physician Practices is amultiple site organization consisting of ambulatory clinics and hospital sitesin [place], [place], [place] and [place]. This disclosure is being madepursuant to the Care Everywhere program and may not contain all information available regarding this patient. Last updated 18.[facility] Social History Tobacco Use Types Packs/Day Years Used Date Smoking Tobacco: Never Smokeless Tobacco: Never Alcohol Use Standard Drinks/Week Comments No 0 (1 standard drink = 0.6 oz pur e alcohol) Sex and Gender Information Value Date Recorded Sex Assigned at Not on file Gender Identity Not on file Sexual Orientation Not on file Last Filed Vital Signs Vital Sign Reading Time Taken Comments Blood Pressure 142/83 02/02/2015 12:00 AM CDT Pulse 67 02/02/2015 12:00 AM CDT Temperature 36.2 C (97.1 F) 02/01/2015 11:29 PM CDT Respiratory Rate 16 02/01/2015 11:29 PM CDT Oxygen Saturation 100% 02/02/2015 12:00 AM CDT Inhaled Oxygen Concentration - - Weight 106.1 kg (234 lb) 02/01/2015 11:29 PM CDT Height 190.5 cm (6' 3 ) 02/01/2015 11:29 PM CDT Body Mass Index 29.25 02/01/2015 11:29 PM CDT Care Teams Animal Laboratory Technician Relationship Specialty Start Date End Date Edwin Sanchez MD [address] [place], [place] [id number] [facility] - General 02/01/15
--- OUTSIDE RECORDS SUMMARY | 2024-11-29 07:16 | XMS_ITS | Clinical Summary ---
Author Organization [facility] Address [address] [place] [address] Care Team Providers Care Endoscopy Technican Name Role Phone Edwin Sanchez MD Primary Care Provider [phone] Source Comments [facility],non-owned Affiliates and Associated Physician Practices is amultiple site organization consisting of ambulatory clinics and hospital sitesin [place], [place], [place] and [place]. This disclosure is being madepursuant to the Care Everywhere program and may not contain all information available regarding this patient. Last updated 18.[facility] Social History Tobacco Use Types Packs/Day [...] Mass Index 29.25 02/01/2015 11:29 PM CDT Plan of Treatment Health Maintenance Due Date Last Done Comments COLOGUARD (AGES 45-75) - COL ON CA SCREENING 1958 COLON MONITORING 1958 COLONOSCOPY - COLON CA SCREENING 1958 CT COLONOGRAPHY - COLON CA SCREENING 1958 Colorectal Cancer Screening 1958 FIT - COLON CA SCREENING 1958 FLEX SIG - COLON CA SCREENING 1958 LIPID TESTING 1958 HEPATITIS C SCREENING 06/21/1976 DTAP/TDAP/TD VACCINES (1 - Tdap) 1977 PNEUMOCOCCAL VACCINE 50+ (1 of 1 - PCV) 2008 ZOSTER VACCINE (1 of 2) 2008 COVID-19 VACCINE (1 - 2023-2 5 season) 2024 INFLUENZA VACCINE (#1) 2024 DEPRESSION SCREENING 09/15/2024 Respiratory Syncytial Virus (RSV) Vaccine Pt: or over 60 yrs (1 - 1-dose 75+ series) 2033 HEPATITIS B VACCINE Aged Out No longe r eligible based on patient's age to complete this topic HIB VACCINE Aged Out No longer eligi ble based on patient's age to complete this topic HPV VACCINE Aged Out No longer eligi ble based on patient's age to complete this topic MENINGOCOCCAL (Group B) VACC INE SHARED DECISION-MAKING Aged Out No longer eligibl e based on patient's age to complete this topic MENINGOCOCCAL GROUPS A/C/Y/W VACCINE Aged Out No longer eligible b ased on patient's age to complete this topic Care Teams Endoscopy Technican Relationship Specialty Start Date End Date Edwin Sanchez MD [address] [place] [address] PCP - General 02/01/15
--- OUTSIDE RECORDS SUMMARY | 2024-11-29 07:16 | XMS_ITS | Referral Summary ---
Author Organization [facility] Address [address] [place] [address] Care Team Providers Care Scrip Clerk Name Role Phone Edwin Sanchez MD Primary Care Provider [phone] Source Comments [facility],non-[facility] hospital Affiliates and Associated Physician Practices is amultiple site organization consisting of ambulatory clinics and hospital sitesin [place], [place], [place] and [place]. This disclosure is being madepursuant to the Care Everywhere program and may not contain all information available regarding this patient. Last updated 18.[facility] Social History Tobacco Use Types [...] 02/01/2015 11:29 PM CDT Plan of Treatment Not on file Care Teams Scrip Clerk Relationship Specialty Start Date End Date Edwin Sanchez MD [address] [place] [address] PCP - General 02/01/15
[2024-11-29 08:37] LABS: Prostate Specific Antigen 4.4 ng/mL (< OR = 4.0)
== END 2024-11-29 07:10 | disposition home or self-care (01) ==
PROVIDERS: PCP Internal Medicine; Visit Provider Urology
DX: R97.20 Elevated prostate specific antigen [PSA] (principal)
CPT/HCPCS: 36415; 84153

== ENCOUNTER 2024-12-16 07:05 | Outpatient (CLI) | payer MEDICARE, SELFPAY ==
--- OUTSIDE RECORDS SUMMARY | 2024-12-16 07:08 | XMS_ITS | Clinical Summary ---
Author Organization [facility] Address [address] [place] [address] Care Team Providers Care Bias Machine Operator Name Role Phone Edwin Sanchez MD Primary Care Provider [phone] Source Comments [facility],non-owned Affiliates and Associated Physician Practices is amultiple site organization consisting of ambulatory clinics and hospital sitesin [place], [place], [place] and [place]. This disclosure is being madepursuant to the Care Everywhere program and may not contain all information available regarding this patient. Last updated 18.[facility] Social History Tobacco Use Types Packs/Day Years [...] age to complete this topic Care Teams Bias Machine Operator Relationship Specialty Start Date End Date Edwin Sanchez MD [address] [place] [address] PCP - General 02/01/15
[2024-12-16 08:05] LABS: Alanine Aminotransferase 27 U/L (16-63); Albumin Level 4.2 g/dL (3.4-5.0); Alkaline Phosphatase 89 U/L (46-116); Anion Gap 9 mmol/L (4-12); Aspartate Amino Transferase 16 U/L (15-37); Bilirubin,Total 0.7 mg/dL (0.00-1.00); Blood Urea Nitrogen 12 mg/dL (7-18); Calcium 9.3 mg/dL (8.5-10.1); Carbon Dioxide 31 mmol/L (21-32); Chloride 101 mmol/L (98-108); Cholesterol 170 mg/dL (0-200); Estimated Glomerular Filt Rate > 60; Glucose 168 mg/dL (70-99); HDL Direct 54 mg/dL (40-60); LDL Cholesterol Calculated 102 mg/dL (<130); Osmolality Calculated 295 mOsm/kg (285-295); Potassium 4.4 mmol/L (3.5-5.1); Sodium 141 mmol/L (136-145); Total Protein 7.2 g/dL (6.4-8.2); Triglycerides 70 mg/dL (0-150)
[2024-12-16 08:41] LABS: Hemoglobin A1C 7.2 % (<5.7)
== END 2024-12-16 07:06 | disposition home or self-care (01) ==
LOC: CHSLAB 07:07
PROVIDERS: PCP Internal Medicine; Visit Provider Internal Medicine
DX: E11.9 Type 2 diabetes mellitus without complications (principal); R97.20 Elevated prostate specific antigen [PSA]; E78.5 Hyperlipidemia, unspecified
CPT/HCPCS: 36415; 80053; 80061; 83036

== ENCOUNTER 2025-01-23 00:45 | Emergency (ER) | payer MEDICARE, SELFPAY ==
[2025-01-23] VITALS (66 sets, daily range): BP systolic 131–186; BP diastolic 56–135; PULSE 58–142; RESP 10–31; TEMP 35.6–36.4; O2SAT 84–100
--- NOTE | ~2025-01-23 | CT_ITS ---
EXAMINATION: CT abdomen pelvis w con DATE: 01/23/2025 02:38 INDICATION: Upper abdominal pain since yesterday evening TECHNIQUE: Computed tomography (CT) of the abdomen and pelvis was performed without intravenous contr ast. The dose-length product was 482.82 mGy-cm. Automated exposure control and iterative reconstructi on technique were employed. COMPARISON: CT dated 07/15/2021. FINDINGS: Lung bases are unremarkable. Heart size normal. Mild mucosal thickening of the gastric antr um. There is mesenteric stranding in the central abdomen. There is patent celiac axis and SMA. There is nonspecific tubular gas best seen on images of series 3, image [id number]. The ERNICO appears patent. Non obstructive bowel gas pattern. There is possible thrombosis of a distal branch of the SMA. Fatty infiltration of the liver. The spleen, pancreas, adrenal glands and right kidney are unremarkab le. There is a left renal cyst. Gallbladder is present. No acute osseous abnormality. Moderate-severe lower thoracic and lumbar spondylosis. No free air. No abscess. IMPRESSION: 1. Possible thrombosis of the distal branch of the SMA. Nonspecific curvilinear tubular gas is presen t in the mesentery with adjacent stranding. This constellation of findings is concerning for ischemic bowel. Recommend surgical consultation. Dr. Viet Jenkins discussed with Dr. Ned Alston MD at 01/23/2025 6:48 CDT. Reviewed, dictated and finalized at location A. IMPRESSION: 1. Possible thrombosis of the distal branch of the SMA. Nonspecific curvilinear tubular gas is present in the mesentery with adjacent stranding. This constell ation of findings is concerning for ischemic bowel. Recommend surgical consulta tion. Dr. Viet Jenkins discussed with Dr. Ned Alston MD at 01/23/2025 6:48 CDT.
--- NOTE | ~2025-01-23 | XR_ITS ---
EXAMINATION: XR chest 1V portable 01/23/2025 01:10 INDICATION: Upper abdominal pain PROCEDURE: AP portable chest COMPARISON: No prior studies for comparison. FINDINGS: The lungs are clear. The cardiomediastinal silhouette is within normal limits. There are no pleural effusions. There is no pneumothorax suspected. Mildly elevated left diaphragm. IMPRESSION: 1: NO ACUTE CARDIOPULMONARY DISEASE. Reviewed, dictated and finalized at location A.
--- OUTSIDE RECORDS SUMMARY | 2025-01-23 00:53 | XMS_ITS | Clinical Summary ---
Author Organization [facility] Address [address] [place] [address] Care Team Providers Care Work Environment Safety Inspector Name Role Phone Edwin Sanchez MD Primary Care Provider [phone] Source Comments [facility],non-owned Affiliates and Associated Physician Practices is amultiple site organization consisting of ambulatory clinics and hospital sitesin [place], [place], [place] and [place]. This disclosure is being madepursuant to the Care Everywhere program and may not contain all information available regarding this patient. 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
--- NOTE | 2025-01-23 00:58 | ECG_ITS ---
Test Date: 2025-01-23 01:02:20 Measurements Intervals [place] Rate: 70 P: 75 NC: 177 QRS: -7 QRSD: 97 T: 74 QT: 373 QTc: 405 Interpretive Statements SINUS RHYTHM POSSIBLE LEFT ATRIAL ENLARGEMENT [-0.1mV P-WAVE IN V1/V2] INCOMPLETE RIGHT BUNDLE BRANCH BLOCK [90+ ms QRS DURATION, TERMINAL R IN V1/V2, 40+ ms S IN I/aVL/V4/V5/V6] SEPTAL MYOCARDIAL INFARCTION , PROBABLY OLD [40+ ms Q WAVE IN V1/V2] No previous ECG available for comparison Electronically Signed On 01-24-2025 16:13:02 CDT by Herb Pruett M.D.
--- NOTE | 2025-01-23 01:08 | ED_ITS ---
HPI - Abdominal Pain General Chief Complaint: Abdominal Pain <Ned Alston MD - Last Filed: 01/23/25 06:37> Stated Complaint: stomach pain <Ned Alston MD - Last Filed: 01/23/25 06:37> Time Seen by Provider: 01/23/25 00:54 <Ned Alston MD - Last Filed: 01/23/25 06:37> Source: patient and family <Ned Alston MD - Last Filed: 01/23/25 06:37> Mode of arrival: ambulatory <Ned Alston MD - Last Filed: 01/23/25 06:37> Limitations: clinical condition <Ned Alston MD - Last Filed: 01/23/25 06:37> History of Present Illness HPI narrative: this is a 64-year-old male with a history of diabetes and hyperlipidemia presents with some abdominal pain periumbilical with nausea no with no chest pain no shortness of breath no dysuria or hematuria no flank pain no fever chills. Patient rates his pain 10/10. Patient states that his pain started earlier this evening and has no abdominal surgeries in his past surgical history. <Ned Alston MD - Last Filed: 01/23/25 06:37> MD elicited complaint: abdominal pain <Ned Alston MD - Last Filed: 01/23/25 06:37> Pertinent past history: constipation <Ned Alston MD - Last Filed: 01/23/25 06:37> Onset (ago): hour(s) <Ned Alston MD - Last Filed: 01/23/25 06:37> Pain Consistency: constant <Ned Alston MD - Last Filed: 01/23/25 06:37> Location: periumbilical <Ned Alston MD - Last Filed: 01/23/25 06:37> Severity: severe <Ned Alston MD - Last Filed: 01/23/25 06:37> Pain scale (0-10): 10 <MD Carolina Edmondson Last Filed: 01/23/25 06:37> Quality: aching and fullness <Ned Alston MD - Last Filed: 01/23/25 06:37> Radiation: none <Ned Alston MD - Last Filed: 01/23/25 06:37> Migration to: no migration <Ned Alston MD - Last Filed: 01/23/25 06:37> Exacerbating factors: nothing <Ned Alston MD - Last Filed: 01/23/25 06:37> Relieving factors: nothing <Ned Alston MD - Last Filed: 01/23/25 06:37> Associated symptoms: nausea <Ned Alston MD - Last Filed: 01/23/25 06:37> Related Data Home Medications: Home Medications ?Medication ?Instructions ?Recorded ?Confirmed ?Last Taken ?Type aspirin 81 mg tablet 81 mg PO HS 05/02/21 03/27/23 05/12/21 History lovastatin 20 mg tablet 40 mg PO HS 05/02/21 03/27/23 05/12/21 History multivitamin 1 tablet PO HS 05/02/21 03/27/23 05/12/21 History niacin 1,000 mg tablet,extended 1,000 mg PO HS 05/02/21 03/27/23 05/12/21 History release 24 hr (Niaspan) <Ned Alston MD - Last Filed: 01/23/25 06:37> Allergies/Adverse Reactions: Allergies Allergy/AdvReac Type Severity Reaction Status Date / Time metformin Allergy Intermediate Abdominal Verified 01/23/25 01:03 Pain <Ned Alston MD - Last Filed: 01/23/25 06:37> Review of Systems 2 Review of Systems: All systems reviewed & are unremarkable except as noted in HPI and below <Ned Alston MD - Last Filed: 01/23/25 06:37> [facility] Past Medical History Medical History: Medical History Diabetes type 2, controlled Hyperlipidemia <Ned Alston MD - Last Filed: 01/23/25 06:37> Family History Family History: Family History Mother Family history of elevated blood lipids Family history of malignant neoplasm of uterus Family history of dementia Sibling Family history of elevated blood lipids Father Family history of dementia Family history of type 2 diabetes mellitus Family history of congestive heart failure Other Carcinoma of colon <Ned Alston MD - Last Filed: 01/23/25 06:37> Social History Social History: Social History Smoking status: Never smoker Second hand tobacco smoke exposure: No Alcohol intake: former Substance use: never Substance use type: does not use Living arrangements: with family Spiritual care concerns: No <Ned Alston MD - Last Filed: 01/23/25 06:37> Exam 2 Const: General: ill appearing <Ned Alston MD - Last Filed: 01/23/25 06:37> Nutritional Appearance: thin <Ned Alston MD - Last Filed: 01/23/25 06:37> Orientation/consciousness: patient oriented x3 <Ned Alston MD - Last Filed: 01/23/25 06:37> Limitations: no limitations <Ned Alston MD - Last Filed: 01/23/25 06:37> HENMT: Head: normal to inspection <Ned Alston MD - Last Filed: 01/23/25 06:37> Eyes: Conjunctivae: conjunctivae normal <Ned Alston MD - Last Filed: 01/23/25 06:37> EOM: EOMs intact bilaterally <Ned Alston MD - Last Filed: 01/23/25 06:37> Neck: Neck: normal visual inspection <MD Carolina Edmondson Last Filed: 01/23/25 06:37> Chest: Chest palpation & inspection: normal inspection of the chest < Ned Alston MD - Last Filed: 01/23/25 06:37> Resp: Effort & Inspection: normal respiratory effort <MD Carolina Edmondson Last Filed: 01/23/25 06:37> Auscultation: clear to auscultation bilaterally <Ned Alston MD - Last Filed: 01/23/25 06:37> Cardio: Rate: regular rate <MD Carolina Edmondson Last Filed: 01/23/25 06:37> Rhythm: regular rhythm <Ned Alston MD - Last Filed: 01/23/25 06:37> GI: GI Palp: Yes Tenderness to palpation present (GI) and Yes Guarding due to palpation present (GI) <MD Carolina Edmondson Last Filed: 01/23/25 06:37> Auscultation: Hypoactive bowel sounds present <MD Carolina Edmondson Last Filed: 01/23/25 06:37> : General: Yes bladder normal to palpation <MD Carolina Edmondson Last Filed: 01/23/25 06:37> Urinary Catheter: Urinary Catheter: patent and draining <MD Carolina Edmondson Last Filed: 01/23/25 06:37> Back/Spine/Pelvis: Back: no CVA tenderness <MD Carolina Edmondson Last Filed: 01/23/25 06:37> Skin: General skin exam: normal color <MD Carolina Edmondson Last Filed: 01/23/25 06:37> Rashes: no rashes <MD Carolina Edmondson Last Filed: 01/23/25 06:37> Neuro: General: patient oriented x3, moves all extremities, no meningeal signs and no focal motor deficits <MD Carolina Edmondson Last Filed: 01/23/25 06:37> Extrem: General: normal to inspection <MD Carolina Edmondson Last Filed: 01/23/25 06:37> Course Course Emergency Course: Patient with some abdominal pain, received 4mg of morphine, IV fluids and 4mg of Zofran. CT scan of the abdomen pelvis with contrast performed labs without any significant abnormalities lipase is normal. <MD Carolina Edmondson Last Filed: 01/23/25 06:37> Vital Signs Vital signs: Vital Signs Temperature 35.6 C L 01/23/25 00:45 Pulse Rate 80 01/23/25 00:45 Respiratory Rate 18 01/23/25 00:45 Blood Pressure 186/96 H 01/23/25 00:45 Pulse Oximetry 100 01/23/25 00:45 Oxygen Delivery Room Air 01/23/25 00:45 Temperature 35.6 C L 01/23/25 00:45 Pulse Rate 89 01/23/25 06:31 Respiratory Rate 17 01/23/25 06:31 Blood Pressure 158/77 H 01/23/25 06:30 Pulse Oximetry 96 01/23/25 06:31 Oxygen Delivery Room Air 01/23/25 00:45 <Ned Alston MD - Last Filed: 01/23/25 06:37> Vital Signs Temperature 35.6 C L 01/23/25 00:45 Pulse Rate 80 01/23/25 00:45 Respiratory Rate 18 01/23/25 00:45 Blood Pressure 186/96 H 01/23/25 00:45 Pulse Oximetry 100 01/23/25 00:45 Oxygen Delivery Room Air 01/23/25 00:45 Temperature 35.6 C L 01/23/25 00:45 Pulse Rate 89 01/23/25 06:31 Respiratory Rate 17 01/23/25 06:31 Blood Pressure 158/77 H 01/23/25 06:30 Pulse Oximetry 96 01/23/25 06:31 Oxygen Delivery Room Air 01/23/25 00:45 <Johnny Mejias MD - Last Filed: 01/23/25 08:00> MDM - Abdominal Pain MDM Narrative Medical decision making narrative: Patient being transferred to [facility] for vascular surgery. [facility] declined the case and needed vascular surgery. [facility] Hospitalist said to wait on the heparin at this time. <Johnny Mejias MD - Last Filed: 01/23/25 08:00> Lab Data Result diagrams: 01/23/25 00:58 01/23/25 00:58 <Ned Alston MD - Last Filed: 01/23/25 06:37> Labs: Lab Results 01/23/25 Range/Units 00:58 WBC 7.4 (4.8-10.8) K/mm3 RBC 5.42 (4.70-6.10) M/mm3 Hgb 16.5 H (12.4-15.3) g/dL Hct 47.8 H (37.0-46.0) % MCV 88.2 (78.0-102.0) fL MCH 30.4 (27.0-31.0) pg MCHC 34.5 (32-36) g/dL RDW 12.3 (11.6-14.4) % Plt Count 259 (150-420) K/mm3 MPV 9.7 (8.7-11.0) fl Immature Gran % (Auto) 0.3 H (0.0-0.0) % Neut % (Auto) 72.5 H (50.0-70.0) % Lymph % (Auto) 21.1 (18.0-42.0) % [place] % (Auto) 5.3 (2.0-11.0) % Eos % (Auto) 0.4 L (1.0-6.0) % Baso % (Auto) 0.4 (0.0-1.0) % Lymph # (Auto) 1.56 (1.10-4.50) K/mm3 [place] # (Auto) 0.39 (0.10-0.90) K/mm3 Eos # (Auto) 0.03 (0.02-0.50) K/mm3 Baso # (Auto) 0.03 (0.00-0.10) K/mm3 Abs Immat Gran (auto) 0.02 H (0.00-0.00) K/mm3 Absolute Neuts (auto) 5.36 (1.70-7.20) K/mm3 Absolute Nucleated RBC 0.00 (0.00-0.00) K/mm3 Nucleated RBC % 0.0 (0-0.0) % PT 10.1 (9.50-12.1) Seconds INR 0.9 APTT 27.7 (23.9-30.70) Sec Sodium 135 L (136-145) mmol/L Potassium 4.1 (3.5-5.1) mmol/L Chloride 96 L (98-108) mmol/L Carbon Dioxide 28 (21-32) mmol/L Anion Gap 11 (4-12) mmol/L BUN 12 (7-18) mg/dL Creatinine 1.08 (0.70-1.30) mg/dL Estim Creat Clear Calc 71 ml/min Estimated GFR > 60 (59 - ) Glucose 247 H (70-99) mg/dL Calculated Osmolality 287 (285-295) mOsm/kg Lactic Acid 1.4 (0.4-2.0) mmol/L Calcium 9.1 (8.5-10.1) mg/dL Total Bilirubin 0.8 (0.00-1.00) mg/dL AST 30 (15-37) U/L ALT 27 (16-63) U/L Alkaline Phosphatase 81 (46-116) U/L Troponin I 43.7 (0.00-60.4) ng/L Total Protein 8.1 (6.4-8.2) g/dL Albumin 4.6 (3.4-5.0) g/dL Lipase 26 (16-77) U/L Urine Color Light yellow (Yellow) Urine Appearance Clear (Clear) Urine pH 6.5 (5.0-8.0) Ur Specific [place] 1.010 (1.010-1.020) Urine Protein Negative (Negative) Urine Glucose (UA) 3+ H (Negative) Urine Ketones 2+ H (Negative) Ur Blood (Man) Trace-intact H (Negative) Urine Nitrate Negative (Negative) Urine Bilirubin Negative (Negative) Urine Urobilinogen 0.2 (0.2-1.0) mg/dL Leukocyte Esterase Rfl Negative (Negative) KIRA/UL <Ned Alston MD - Last Filed: 01/23/25 06:37> Lab Results 01/23/25 Range/Units 00:58 WBC 7.4 (4.8-10.8) K/mm3 RBC 5.42 (4.70-6.10) M/mm3 Hgb 16.5 H (12.4-15.3) g/dL Hct 47.8 H (37.0-46.0) % MCV 88.2 (78.0-102.0) fL MCH 30.4 (27.0-31.0) pg MCHC 34.5 (32-36) g/dL RDW 12.3 (11.6-14.4) % Plt Count 259 (150-420) K/mm3 MPV 9.7 (8.7-11.0) fl Immature Gran % (Auto) 0.3 H (0.0-0.0) % Neut % (Auto) 72.5 H (50.0-70.0) % Lymph % (Auto) 21.1 (18.0-42.0) % [place] % (Auto) 5.3 (2.0-11.0) % Eos % (Auto) 0.4 L (1.0-6.0) % Baso % (Auto) 0.4 (0.0-1.0) % Lymph # (Auto) 1.56 (1.10-4.50) K/mm3 [place] # (Auto) 0.39 (0.10-0.90) K/mm3 Eos # (Auto) 0.03 (0.02-0.50) K/mm3 Baso # (Auto) 0.03 (0.00-0.10) K/mm3 Abs Immat Gran (auto) 0.02 H (0.00-0.00) K/mm3 Absolute Neuts (auto) 5.36 (1.70-7.20) K/mm3 Absolute Nucleated RBC 0.00 (0.00-0.00) K/mm3 Nucleated RBC % 0.0 (0-0.0) % PT 10.1 (9.50-12.1) Seconds INR 0.9 APTT 27.7 (23.9-30.70) Sec Sodium 135 L (136-145) mmol/L Potassium 4.1 (3.5-5.1) mmol/L Chloride 96 L (98-108) mmol/L Carbon Dioxide 28 (21-32) mmol/L Anion Gap 11 (4-12) mmol/L BUN 12 (7-18) mg/dL Creatinine 1.08 (0.70-1.30) mg/dL Estim Creat Clear Calc 71 ml/min Estimated GFR > 60 (59 - ) Glucose 247 H (70-99) mg/dL Calculated Osmolality 287 (285-295) mOsm/kg Lactic Acid 1.4 (0.4-2.0) mmol/L Calcium 9.1 (8.5-10.1) mg/dL Total Bilirubin 0.8 (0.00-1.00) mg/dL AST 30 (15-37) U/L ALT 27 (16-63) U/L Alkaline Phosphatase 81 (46-116) U/L Troponin I 43.7 (0.00-60.4) ng/L Total Protein 8.1 (6.4-8.2) g/dL Albumin 4.6 (3.4-5.0) g/dL Lipase 26 (16-77) U/L Urine Color Light yellow (Yellow) Urine Appearance Clear (Clear) Urine pH 6.5 (5.0-8.0) Ur Specific [place] 1.010 (1.010-1.020) Urine Protein Negative (Negative) Urine Glucose (UA) 3+ H (Negative) Urine Ketones 2+ H (Negative) Ur Blood (Man) Trace-intact H (Negative) Urine Nitrate Negative (Negative) Urine Bilirubin Negative (Negative) Urine Urobilinogen 0.2 (0.2-1.0) mg/dL Leukocyte Esterase Rfl Negative (Negative) KIRA/UL <Johnny Mejias MD - Last Filed: 01/23/25 08:00> Imaging Data Radiologist's impression: ITS Impressions Abdomen/Pelvis CT 01/23/25 06:27 IMPRESSION: 1. Possible thrombosis of the distal branch of the SMA. Nonspecific curvilinear tubular gas is present in the mesentery with adjacent stranding. This constellation of findings is concerning for ischemic bowel. Recommend surgical consultation. Dr. Viet Jenkins discussed with Dr. Ned Alston MD at 01/23/2025 6:48 CDT. <Ned Alston MD - Last Filed: 01/23/25 06:37> ITS Impressions Abdomen/Pelvis CT 01/23/25 06:27 IMPRESSION: 1. Possible thrombosis of the distal branch of the SMA. Nonspecific curvilinear tubular gas is present in the mesentery with adjacent stranding. This constellation of findings is concerning for ischemic bowel. Recommend surgical consultation. Dr. Viet Jenkins discussed with Dr. Ned Alston MD at 01/23/2025 6:48 CDT. <Johnny Mejias MD - Last Filed: 01/23/25 08:00> Critical Care Time Critical Care Time Critical Care Time: No <Ned Alston MD - Last Filed: 01/23/25 06:37> Discharge Plan Discharge Clinical Impression: Ischemia, bowel <Ned Alston MD - Last Filed: 01/23/25 06:37> Patient Disposition: Acute Care Hospital <Ned Alston MD - Last Filed: 01/23/25 06:37> Condition: Serious <Ned Alston MD - Last Filed: 01/23/25 06:37> Patient Language: Polish <Ned Alston MD - Last Filed: 01/23/25 06:37> Prescriptions: No Action (DME) blood-glucose meter [Accu-Chek Guide Glucose Meter] Misc See Rx Instructions .Route Qty: 1 0RF Rx Instructions: ACHS glucose checks niacin [Niaspan Extended-Release] 1,000 mg tablet extended release 24 hr 1,000 mg PO HS lovastatin 20 mg tablet 40 mg PO HS multivitamin Tablet 1 tablet PO HS aspirin 81 mg Tablet 81 mg PO HS <Ned Alston MD - Last Filed: 01/23/25 06:37> Follow-up/Referrals: Edwin Sanchez MD [Primary Care Provider] - <Ned Alston MD - Last Filed: 01/23/25 06:37> Time of Disposition: 07:59 <Ned Alston MD - Last Filed: 01/23/25 06:37> 07:59 <Johnny Mejias MD - Last Filed: 01/23/25 08:00>
--- NOTE | 2025-01-23 01:13 | PC.NURSE ---
pt aware urine specimen is needed. pt given urinal
[2025-01-23 01:20] LABS: Basophils Absolute Auto 0.03 K/mm3 (0.00-0.10); Basophils Percent Auto 0.4 % (0.0-1.0); Eosinophils Absolute Auto 0.03 K/mm3 (0.02-0.50); Eosinophils Percent Auto 0.4 % (1.0-6.0); Hematocrit 47.8 % (37.0-46.0); Hemoglobin 16.5 g/dL (12.4-15.3); Immature Granulocyte Absolute 0.02 K/mm3 (0.00-0.00); Immature Granulocyte Percent A 0.3 % (0.0-0.0); Lymphocytes Absolute Auto 1.56 K/mm3 (1.10-4.50); Lymphocytes Percent Auto 21.1 % (18.0-42.0); Mean Corpuscular HGB Conc 34.5 g/dL (32-36); Mean Corpuscular Hemoglobin 30.4 pg (27.0-31.0); Mean Corpuscular Volume 88.2 fL (78.0-102.0); Mean Platelet Volume 9.7 fl (8.7-11.0); Monocytes Absolute Auto 0.39 K/mm3 (0.10-0.90); Monocytes Percent Auto 5.3 % (2.0-11.0); Neutrophils Absolute Auto 5.36 K/mm3 (1.70-7.20); Neutrophils Percent Auto 72.5 % (50.0-70.0); Platelet Count Result 259 K/mm3 (150-420); Red Blood Count 5.42 M/mm3 (4.70-6.10); Red Cell Distribution Width 12.3 % (11.6-14.4); White Blood Count 7.4 K/mm3 (4.8-10.8)
--- NOTE | 2025-01-23 01:25 | PC.NURSE ---
Called Susana in lab and asked her to please come draw cultures on patient.
--- OUTSIDE RECORDS SUMMARY | 2025-01-23 01:28 | XMS_ITS | Clinical Summary ---
Author Organization [facility] Address [address] [place] [address] Care Team Providers Care Informatics Spec Name Role Phone Edwin Sanchez MD Primary Care Provider Source Comments [facility],non-owned Affiliates and Associated Physician Practices is amultiple site organization consisting of ambulatory clinics and hospital sitesin [place], [place], [place] and [place]. This disclosure is being madepursuant to the Care Everywhere program and may not contain all information available regarding this patient. 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
[2025-01-23 01:29] LABS: INR 0.9; Partial Thromboplastin Time 27.7 Sec (23.9-30.70); Prothrombin Time 10.1 Seconds (9.50-12.1)
[2025-01-23] MEDS: MORPHINE SULFATE (*CRX) 4 MG/ML INJ IV PUSH (01:34)
[2025-01-23] MEDS: ONDANSETRON INJ 4 MG/2 ML VIAL IV PUSH (01:34)
[2025-01-23] MEDS: PANTOPRAZOLE SODIUM IV 40 MG VIAL IV PUSH (01:35)
[2025-01-23] MEDS: SODIUM CHLORIDE 0.9% IV 1,000 ML 999 ML IV CONT (01:35)
[2025-01-23 01:44] LABS: Alanine Aminotransferase 27 U/L (16-63); Albumin Level 4.6 g/dL (3.4-5.0); Alkaline Phosphatase 81 U/L (46-116); Anion Gap 11 mmol/L (4-12); Aspartate Amino Transferase 30 U/L (15-37); Bilirubin,Total 0.8 mg/dL (0.00-1.00); Blood Urea Nitrogen 12 mg/dL (7-18); Calcium 9.1 mg/dL (8.5-10.1); Carbon Dioxide 28 mmol/L (21-32); Chloride 96 mmol/L (98-108); Estimated CRCL calculation 71 ml/min; Estimated Glomerular Filt Rate > 60; Glucose 247 mg/dL (70-99); Lipase 26 U/L (16-77); Osmolality Calculated 287 mOsm/kg (285-295); Potassium 4.1 mmol/L (3.5-5.1); Sodium 135 mmol/L (136-145); Total Protein 8.1 g/dL (6.4-8.2); Troponin I 43.7 ng/L (0.00-60.4)
[2025-01-23] MEDS: HYDROmorphone HCL INJ (*CRX) 2 MG/ML VIAL 1 MG IV PUSH ×2 (02:09→06:56)
[2025-01-23 02:29] LABS: Lactic Acid Reflex 1.4 mmol/L (0.4-2.0)
[2025-01-23] MEDS: HYDROmorphone HCL INJ (*CRX) 2 MG/ML VIAL 0.5 MG IV PUSH ×2 (05:16→09:25)
[2025-01-23] MEDS: PIPERACILLIN/TAZ 2.25G/NS 50ML 2.25 GM/50 ML BAG IVPB (07:02)
--- NOTE | 2025-01-23 07:11 | PC.NURSE ---
facesheet faxed to [facility] at [phone]
[2025-01-23 07:31] LABS: Add Urine Microscopic? NO; Appearance Urine Clear (Clear); Bilirubin Urine Negative (Negative); Blood Urine Trace-intact (Negative); Color Urine Light Yellow (Yellow); Glucose Urine UA 3+ (Negative); Ketones Urine 2+ (Negative); Leukocyte Esterase Ur Negative LEU/UL (Negative); Nitrate Urine Negative (Negative); Protein Urine Negative (Negative); Urobilinogen Urine 0.2 mg/dL (0.2-1.0); pH Urine 6.5 (5.0-8.0)
[2025-01-23] MEDS: SODIUM CHLORIDE 0.9% IV 1,000 ML 200 ML IV CONT (07:45)
--- NOTE | 2025-01-23 09:18 | PC.NURSE ---
Patient just stood at bedside to urinate, Patient states pain is around a 3 at this time. Patient updated that he is going to be leaving soon on ambulance and patient states he is fine right now and does not feel he needs anything else for pain.
== END 2025-01-23 09:38 | disposition short-term general hospital (02) ==
PROVIDERS: Emergency Medicine; Emergency Provider Emergency Medicine; PCP Internal Medicine
DX: K55.9 Vascular disorder of intestine, unspecified (principal); E78.5 Hyperlipidemia, unspecified; E11.9 Type 2 diabetes mellitus without complications
CPT/HCPCS: 36415; 71045; 74177; 80053; 81003; 83605; 83690; 84484; 85025; 85610; 85730; 93005; 96361; 96365; 96375; 96376; 99285; J1171; J2270; J2405; J2470; J2543; J7030; Q9967

== ENCOUNTER 2025-02-12 18:29 | Emergency (ER) | payer MEDICARE, SELFPAY ==
[2025-02-12 18:29] VITALS: BP 130/77; PULSE 92; RESP 18; TEMP 36.1; O2SAT 100
--- OUTSIDE RECORDS SUMMARY | 2025-02-12 18:42 | XMS_ITS | Clinical Summary ---
Author Organization [facility] Address [address] [place] [address] Care Team Providers Care Dot Net Developer Name Role Phone Edwin Sanchez MD Primary Care Provider [phone] Source Comments [facility],non-owned Affiliates and Associated Physician Practices is amultiple site organization consisting of ambulatory clinics and hospital sitesin [place], [place], [place] and [place]. This disclosure is being madepursuant to the Care Everywhere program and may not contain all information available regarding this patient. 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
[2025-02-12 19:11] VITALS: BP 130/74; PULSE 81; RESP 20; TEMP 37.1; O2SAT 100
--- OUTSIDE RECORDS SUMMARY | 2025-02-12 19:30 | XMS_ITS | Clinical Summary ---
Author Organization [facility] Address [address] [place] [address] Care Team Providers Care Carton Gluing Machine Operator Name Role Phone Edwin Sanchez MD Primary Care Provider [phone] Source Comments [facility],non-owned Affiliates and Associated Physician Practices is amultiple site organization consisting of ambulatory clinics and hospital sitesin [place], [place], [place] and [place]. This disclosure is being madepursuant to the Care Everywhere program and may not contain all information available regarding this patient. 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
--- NOTE | 2025-02-12 19:32 | ED_ITS ---
HPI - Wound/Laceration General Chief Complaint: Wound/Laceration Stated Complaint: post op problem; incision site infection Time Seen by Provider: 02/12/25 19:18 Source: patient and family Mode of arrival: ambulatory Limitations: no limitations History of Present Illness HPI narrative: this is a 64-year-old male with recent bowel obstruction and surgical excision of bowels presents with some incision site for wound check there is an area that cathleen that were left out by his surgeon to have drainage otherwise no fever chills recently completed his course of antibiotics the incision site looks remarkably well cathleen are still intact with no erythema and no nausea vomiting no belly pain. Onset (ago): day(s) Place: home Related Data Home Medications ?Medication ?Instructions ?Recorded ?Confirmed ?Last Taken ?Type aspirin 81 mg tablet 81 mg PO HS 05/02/21 03/27/23 05/12/21 History lovastatin 20 mg tablet 40 mg PO HS 05/02/21 03/27/23 05/12/21 History multivitamin 1 tablet PO HS 05/02/21 03/27/23 05/12/21 History niacin 1,000 mg tablet,extended 1,000 mg PO HS 05/02/21 03/27/23 05/12/21 History release 24 hr (Niaspan) Allergies Allergy/AdvReac Type Severity Reaction Status Date / Time metformin Allergy Intermediate Abdominal Verified 01/23/25 01:03 Pain Review of Systems Review of Systems: All systems reviewed & are unremarkable except as noted in HPI and below PMFSH Past Medical History Medical History Diabetes type 2, controlled Hyperlipidemia Family History Family History Mother Family history of elevated blood lipids Family history of malignant neoplasm of uterus Family history of dementia Sibling Family history of elevated blood lipids Father Family history of dementia Family history of type 2 diabetes mellitus Family history of congestive heart failure Other Carcinoma of colon Social History Social History Smoking status: Never smoker Second hand tobacco smoke exposure: No Alcohol intake: former Substance use: never Substance use type: does not use Living arrangements: with family Spiritual care concerns: No Exam Const: General: healthy appearing, no acute distress and alert Nutritional Appearance: well nourished Orientation/consciousness: patient oriented x3 Limitations: no limitations Neck: Neck: normal visual inspection Chest: Chest palpation & inspection: normal inspection of the chest Resp: Effort & Inspection: normal respiratory effort Auscultation: clear to auscultation bilaterally Cardio: Rate: regular rate Rhythm: regular rhythm GI: GI Palp: Yes Soft to palpation Auscultation: normal bowel sounds Back/Spine/Pelvis: Back: no CVA tenderness Skin: Wounds: wounds noted Neuro: General: patient oriented x3, moves all extremities, no meningeal signs and no focal motor deficits Course Course Emergency Course: Patient has an area that was cultured by his primary care physician waiting results recently completed his antibiotics and will extend the course of antibiotics and have patient follow-up with his primary care physician and surgeon. Patient was given a dose of Bactrim here in the emergency department. A Vital Signs Vital signs: Vital Signs Temperature 36.1 C L 02/12/25 18:29 Pulse Rate 92 02/12/25 18:29 Respiratory Rate 18 02/12/25 18:29 Blood Pressure 130/77 02/12/25 18:29 Pulse Oximetry 100 02/12/25 18:29 Oxygen Delivery Room Air 02/12/25 18:29 Temperature 37.1 C 02/12/25 19:11 Pulse Rate 81 02/12/25 19:11 Respiratory Rate 20 02/12/25 19:11 Blood Pressure 130/74 02/12/25 19:11 Pulse Oximetry 100 02/12/25 19:11 Oxygen Delivery Room Air 02/12/25 19:11 Critical Care Time Critical Care Time Critical Care Time: No Discharge Plan Discharge Clinical Impression: Open draining abdominal incision Patient Disposition: Home Condition: Stable Instructions: Antibiotic Form, Chronic Wounds (ED) Additional Instructions: advised patient to take medication as prescribed and to follow with Primary/ surgery for further evaluation and treatment. Patient Language: Danish Prescriptions: New sulfamethoxazole-trimethoprim [Bactrim DS] 800-160 mg tablet 1 tablet PO Q12H Qty: 14 0RF No Action (DME) blood-glucose meter [Accu-Chek Guide Glucose Meter] Misc See Rx Instructions .Route Qty: 1 0RF Rx Instructions: ACHS glucose checks niacin [Niaspan Extended-Release] 1,000 mg tablet extended release 24 hr 1,000 mg PO HS lovastatin 20 mg tablet 40 mg PO HS multivitamin Tablet 1 tablet PO HS aspirin 81 mg Tablet 81 mg PO HS Follow-up/Referrals: Edwin Sanchez MD [Primary Care Provider] - Time of Disposition: 19:35
[2025-02-12] MEDS: SULFAMETHOXAZOLE/TRIMETHOPRIM 800/160 MG DS TABLET 2 TAB PO (19:47)
[2025-02-12 19:54] VITALS: BP 127/83; PULSE 79; RESP 18; TEMP 36.7; O2SAT 94
== END 2025-02-12 19:56 | disposition home or self-care (01) ==
PROVIDERS: Emergency Provider Emergency Medicine; PCP Internal Medicine
DX: Z48.01 Encounter for change or removal of surgical wound dressing (principal); E11.9 Type 2 diabetes mellitus without complications; E78.5 Hyperlipidemia, unspecified
CPT/HCPCS: 99283; A9270

== ENCOUNTER 2025-04-13 07:54 | Outpatient (CLI) | payer MEDICARE, SELFPAY ==
--- OUTSIDE RECORDS SUMMARY | 2025-04-13 08:04 | XMS_ITS | Clinical Summary ---
Author Organization [facility] Address [address] [place] [address] Care Team Providers Care Baseball U[employer]ire [employer] Name Role Phone Edwin Sanchez MD Primary Care Provider [phone] Source Comments [facility],non-owned Affiliates and Associated Physician Practices is amultiple site organization consisting of ambulatory clinics and hospital sitesin [place], [place], [place] and [place]. This disclosure is being madepursuant to the Care Everywhere program and may not contain all information available regarding this patient. 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
[2025-04-13 08:07] LABS: Hematocrit 42.5 % (37.0-46.0); Hemoglobin 13.9 g/dL (12.4-15.3); Immature Granulocyte Percent A 0.0 % (0.0-0.0); Lymphocytes Absolute Auto 1.64 K/mm3 (1.10-4.50); Mean Corpuscular HGB Conc 32.7 g/dL (32-36); Mean Corpuscular Hemoglobin 28.9 pg (27.0-31.0); Mean Corpuscular Volume 88.4 fL (78.0-102.0); Nucleated Red Blood Cells Absolute Auto 0.00 K/mm3 (0.00-0.00); Nucleated Red Blood Cells Perc 0.0 % (0-0.0); Platelet Count Result 215 K/mm3 (150-420); Red Blood Count 4.81 M/mm3 (4.70-6.10); White Blood Count 5.0 K/mm3 (4.8-10.8)
[2025-04-13 08:36] LABS: Hemoglobin A1C 5.2 % (<5.7)
[2025-04-13 08:58] LABS: Alanine Aminotransferase 16 U/L (6-50); Albumin Level 4.4 g/dL (3.5-5.1); Alkaline Phosphatase 61 U/L (38-126); Aspartate Amino Transferase 28 U/L (17-59); Bilirubin,Total 0.9 mg/dL (0.2-1.3); Blood Urea Nitrogen 17 mg/dL (9-20); Calcium 9.1 mg/dL (8.4-10.2); Carbon Dioxide 27 mmol/L (22-30); Chloride 105 mmol/L (98-107); Estimated Glomerular Filt Rate > 60; Glucose 79 mg/dL (65-110); Potassium 4.5 mmol/L (3.4-5.0); Total Protein 6.7 g/dL (6.3-8.2)
[2025-04-13 09:00] LABS: Anion Gap 5 mmol/L (4-12); Osmolality Calculated 284 mOsm/kg (285-295); Sodium 137 mmol/L (137-145)
== END 2025-04-13 07:55 | disposition home or self-care (01) ==
LOC: CHSLAB 07:56
PROVIDERS: PCP Internal Medicine; Visit Provider Internal Medicine
DX: E11.9 Type 2 diabetes mellitus without complications (principal)
CPT/HCPCS: 36415; 80053; 83036; 85025

== ENCOUNTER 2025-06-09 08:00 | Outpatient (CLI) | payer MEDICARE, SELFPAY ==
--- OUTSIDE RECORDS SUMMARY | 2025-06-09 08:08 | XMS_ITS | Clinical Summary ---
Author Organization [facility] Address [facility] [place] [address] Care Team Providers Care Casting Coordinator Name Role Phone None, Provider MD Primary Care Provider Unavaila ble Allergies Active Allergy Reactions Criticality Noted Date Comments Metformin Nausea and Vomiting 01/23/2025 Medications lovastatin (MEVACOR) 20 MG tablet Take 2 tablets (40 mg total) by mouth nightly. Active aspirin EC 81 MG tablet Take 1 tablet (81 mg total) by mouth daily. Active Multiple Vitamin (MULTI-VITAMIN) tablet Take 1 tablet by mouth daily. Active amLODIPine (NORVASC) 10 MG tablet Take 1 tablet (10 mg total) by mouth daily. 30 tablet 02/03/2025 Active insulin lispro (HUMALOG/ADMELO G) 100 UNIT/ML injection (VIAL) Inject 10 Units into the skin 3 (three) times daily before meals. 9 mL 02/02/2025 Active insulin glargine (LANTUS) 100 UNIT/ML injection (VIAL) Inject 20 Units into the skin nightly at bedtime. 6 mL 02/02/2025 Active Blood Glucose Monitoring Suppl (D-CARE GLUCOMETER) w/Device KitIndications: Type 2 diabetes mellitus with hyperglycemia, with long-term current use of insulin ([facility] HHS/HCC) Check blood glucose three times daily before meals 1 kit 02/03/2025 Active Lancets MiscIndications :Type 2 diabetes mellitus with hyperglycemia, with long-term current use of insulin ([facility] HHS/HCC) 1 each by Does not apply route 3 (three) times daily. Check blood glucose levels three times daily before meals 100 each 02/03/2025 Active Blood Gluc Meter Disp-Strips (BLOOD GLUCOSE METER DISPOSABLE) DeviceIndicatio ns:Type 2 diabetes mellitus with hyperglycemia, with long-term current use of insulin ([facility]) 1 each by Does not apply route 3 (three) times daily. 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/23/2025 Family History Medical History Relation Comments Diabetes Brother Colon Cancer Father Coronary artery disease Father Diabetes Father Stroke Father Diabetes Mother Stroke Mother Uterine Cancer Mother Relation Status Comments Brother Father Mother Social History Tobacco Use Types Packs/Day Years Used Date Smoking Tobacco: Never Passive Smoke Exposure: Never Smokeless Tobacco: Never Tobacco Cessation:Counseling Given: No Alcohol Use Standard Drinks/Week Comments Yes 0 (1 standard drink = 0.6 oz pur e alcohol) rare [facility] Utilities Answer Date Recorded In the past 12 months has e [employer] gas, oil, or water [employer] threatened to shut off services in your home? No 01/23/2025 Humiliation, Afraid, Rape, and Kick questionnair e Answer Date Recorded Within the last year, have y ou been afraid of your partner or ex-partner? No 01/23/2025 Within the last year, have y ou been humiliated or emotionally abused in other ways by your partner or ex-partner? No Within the last year, have y ou been kicked, hit, slapped, or otherwise physically hurt by your partner or ex-partner? No 01/23/2025 Within the last year, have y ou been raped or forced to have any kind of sexual activity by your partner or ex-partner? No 01/23/2025 Overall Financial Resource Strain (CARDIA) Answe r Date Recorded How hard is it for you to pa y for the very basics like food, housing, medical care, and heating? Not hard at all 01/23/2025 Hunger Vital Sign Answer Date Recorded Within the past 12 months, y ou worried that your food would run out before you got the money to buy more. Never true 01/24/20 25 Within the past 12 months, t he food you bought just didn't last and you didn't have money to get more. Never true 01/23/2025 PRAPARE - Transportation Answer Date Re corded In the past 12 months, has l ack of transportation kept you from medical appointments or from getting medications? No 01/13 In the past 12 months, has l ack of transportation kept you from meetings, work, or from getting things needed for daily living? No 01/23/2025 Housing Stability Vital Sign Answer Greg e Recorded In the last 12 months, was t here a time when you were not able to pay the mortgage or rent on time? No 01/23/2025 In the past 12 months, how m any times have you moved where you were living? 0 01/23/2025 At any time in the past 12 m [facility], were you homeless or living in a correction (including now)? No 01/23/2025 Sex and Gender Information Value Date Recorded Sex Assigned at Male 01/23/2025 10:59 AM CDT Legal Sex Male 10:51 PM CDT Gender Identity Male 01/23/2025 10:59 AM CDT Sexual Orientation Straight 01/23/2025 11 :03 AM CDT Last Filed Vital Signs Vital Sign Reading Time Taken Comments Blood Pressure 127/65 02/03/2025 8:01 AM CDT Pulse 88 02/03/2025 8:01 AM CDT Temperature 37.1 C (98.8 F) 02/03/2025 8:01 AM CDT Respiratory Rate 16 02/03/2025 8:01 AM CDT Oxygen Saturation 98% 02/03/2025 8:01 AM CDT Inhaled Oxygen Concentration - - Weight 95.4 kg (210 lb 5.1 oz) 01/29/2025 8:25 P M CDT Height 190.5 cm (6' 3) 01/29/2025 8:25 PM CDT Body Mass Index 26.29 01/29/2025 8:25 PM CDT Plan of Treatment Health Maintenance Due Date Last Done Comments Colorectal Cancer Screening Colonoscopy (10 Years) 1958 Kidney Health Evaluation 1958 Lipid Panel 1958 Diabetes: Retinopathy Eye Exam 1976 Hepatitis C 1978 Annual Medicare Wellness Visit 2023 COVID-19 Vaccine ( season) 2025 07/07/2024, 09/25/2023, 07/29/2022, Additional history exists Hemoglobin A1C 07/26/2025 01/23/2025 DTaP, Tdap and Td Vaccines (3 - Td or Tdap) 08/13/2031 08/13/2021, 07/29/2011 RSV Immunization or 60+ Years Completed 09/25/2023 Zoster Vaccines Completed 02/10/2024, 12/08/2023 Pneumococcal Vaccine: 50+ Years Completed 07/07/2024, 07/24/2020, 07/29/2011 Meningococcal B Vaccine Aged Out No l onger eligible based on patient's age to complete this topic Meningococcal Vaccine Aged Out No janneth jo eligible based on patient's age to complete this topic RSV Immunizations Under 20 Months Aged Out No longer eligible based on patient's age to complete this topic Medical Devices Implanted Type Area Office Technology Instructor Device Identifier Shelf Expiration Date Model / Serial / Lot Device Closure Vistaseal 4ml - [id number] Implanted:Qty: 1 on 01/26/2025 by Bronwyn Smith DO at [facility] Sealant N/A: Abdomen [employer] NA 06/29/2026 [id number] / / [id number] Procedures Procedure Name Priority Date/Time Associated Diagnosis Comments HEMOGLOBIN, GLYCOSYLATED STAT 01/23/2025 12:13 PM CDT from Last 3 Months or Most Recently Relevant to Health Maintenance Results * (ABNORMAL) HEMOGLOBIN, GLYCATED (01/23/2025 12:13 PM CDT) HGB A1C 6.9(H) <5.7 % 01/23/2025 1:43 PM CDT [facility] ESTIMATED AVG GLUCOSE 151(H) 74 - 114 MG/DL 01/23/2025 1:43 PM CDT [facility] 01/23/2025 12:1 3 PM CDT Dyana Delaney ACNP-BC LABORATORY Final R esult [facility] [address] [place] [address], [id number] from Last 3 Months or Most Recently Relevant to Health Maintenance Insurance [facility] MEDICARE Advance Directives * Full Code (Latest Code Status on File) Date Activated Date Inactivated Comments 01/23/2025 11:43 AM 02/03/2025 1:50 PM Care Teams Casting Coordinator Relationship Specialty Start Date End Date None, Provider, MD PCP - General UNKNOWN PHYSICIAN SPECIALTY 01/23/25
--- OUTSIDE RECORDS SUMMARY | 2025-06-09 08:08 | XMS_ITS | Clinical Summary ---
Author Organization [facility] Address [address] [place] [address] Care Team Providers Care Qa Test Analyst Name Role Phone Edwin Sanchez MD Primary Care Provider [phone] Source Comments [facility],non-owned Affiliates and Associated Physician Practices is amultiple site organization consisting of ambulatory clinics and hospital sitesin [place], [place], [place] and [place]. This disclosure is being madepursuant to the Care Everywhere program and may not contain all information available regarding this patient. 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
[2025-06-09 09:16] LABS: Prostate Specific Antigen 2.4 ng/mL (< OR = 4.0)
== END 2025-06-09 08:01 | disposition home or self-care (01) ==
LOC: CHSLAB 08:02
PROVIDERS: PCP Internal Medicine; Visit Provider Urology
DX: R97.20 Elevated prostate specific antigen [PSA] (principal)
CPT/HCPCS: 36415; 84153